=== PATIENT | female | born 2005 | race Caucasian/White ===

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

== ENCOUNTER 2024-05-18 11:09 | Inpatient (IN) ==
[2024-05-19 08:36] LABS: Mean Corpuscular Hemoglobin 29.6 pg (27-33); Mean Corpuscular Hgb Conc 34.1 g/dL (31-36); Mean Corpuscular Volume 86.9 fL (80-97); Mean Platelet Volume 7.5 fL (7.5-11.2); Platelet Count 302 10^3/uL (150-450); Red Blood Count 4.72 10^6/uL (3.63-4.92); Red Cell Distribution Width 12.1 % (12-17); White Blood Count 8.9 10^3/uL (3.8-11.8)
[2024-05-19 09:09] LABS: ALT 8 U/L (7-52); AST 12 U/L (13-39); Acetaminophen < 15 mcg/mL; Albumin 4.4 g/dL (3.2-5.2); Albumin/Globulin Ratio 1.8 (1-3); Alcohol, S < 13 mg/dL (<13); Alkaline Phosphatase 59 U/L (35-149); Anion Gap 8 mmol/L (2-16); Blood Urea Nitrogen 14 mg/dL (6-24); CO2 Carbon Dioxide 25 mmol/L (22-32); Calcium 9.4 mg/dL (8.6-10.3); Chloride 105 mmol/L (101-111); Creatinine, Serum 0.56 mg/dL (0.51-0.95); Globulin 2.4 g/dL (2-4); Glucose 80 mg/dL (70-100); Potassium 4.2 mmol/L (3.5-5.0); Salicylate < 2.50 mg/dL (<30); Sodium 138 mmol/L (135-145); Total Bilirubin 0.4 mg/dL (0.2-1.0); Total Protein 6.8 g/dL (6.4-8.9); eGFR CKD-EPI 133.1 (>60)
[2024-05-19 09:14] LABS: HCG Pregnancy < 0.60 mIU/mL
[2024-05-19] MEDS ORDERED: Al Hydrox/Mg Hydrox/Simet LIQ 30 ML UDC PO PRN (09:19)
[2024-05-19 09:23] LABS: TSH Ultra Thyroid Stim Horm 3.66 mcIU/mL (0.34-5.60)
[2024-05-19 10:14] LABS: ABS Basophils 0.1 10^3/uL (0.0-0.1); ABS Eosinophils 0.3 10^3/uL (0.0-0.5); ABS Lymphocytes 5.4 10^3/uL (1.0-4.8); ABS Monocytes 0.6 10^3/uL (0.0-0.9); ABS Neutrophils 2.5 10^3/uL (1.5-7.6); ABS Nucleated RBC 0.01 10^3/ul; Nucleated Red Blood Cells % 0.1 %/100WBC (0.0-0.8)
[2024-05-19] MEDS: CMC:FluvoxaMINE 50 mg TAB (NF) PO SCH (20:49)
[2024-05-20 08:22] LABS: HDL Cholesterol 47.6 mg/dL
[2024-05-20] MEDS: Vitamin THERAPEUTIC TAB PO SCH (08:38)
[2024-05-20] MEDS ORDERED: Norethindrone 0.35 mg TAB (NF) PO SCH (09:00)
[2024-05-21 10:07] VITALS: BP 99/71
== END 2024-05-22 13:30 | disposition home or self-care (01) | DRG 751 ==
LOC: ED 11:09 → EDHOLD 05-19 09:20 → BSU 05-19 09:46
PROVIDERS: ADMIT Student in an Organized Health Care Education/Training Program; ATTEND Psychiatry & Neurology Psychiatry